=== PATIENT | female | born 1980 | race Caucasian/White ===

== ENCOUNTER 2016-05-30 12:39 | Emergency (ER) | payer BC ==
[~2016-05-30] VITALS: Ht 170.2 cm; Wt 74.8 kg
[~2016-05-30 12:39] MED LIST: SULF1TAB24 PO
[2016-05-30] MEDS ORDERED: OMEP20TA PO (13:09)
[2016-05-30] MEDS ORDERED: IV NORMAL SALINE 1000ML BAG 1,000 ML IV ONE (13:15)
[2016-05-30] MEDS ORDERED: DIPHENHYDRAMINE 50 MG/ML VIAL IVP ONE (13:15)
[2016-05-30] MEDS ORDERED: DEXAMETHASONE SOD PHOS 20 MG/5 ML VIAL. IV ONE (13:15)
[2016-05-30] MEDS ORDERED: FAMOTIDINE 20 MG/2 ML VIAL IVP ONE (13:15)
[2016-05-30 13:30] LABS: NEG OBC UR NEG; POS OBC UR POS
[2016-05-30 13:31] LABS: BILIRUBIN,URINE NEGATIVE (NEG); GLUCOSE,URINE NEGATIVE (NEG); NITRITE,URINE NEGATIVE (NEG); PH,URINE 5.5; PROTEIN,URINE NEGATIVE (NEG-TRACE); UROBILINOGEN,URINE 0.2 mg/dL (0.2 mg/dL)
[2016-05-30 13:47] LABS: BACTERIA,URINE MODERATE /HPF (0-FEW); SQUAMOUS EPITHELIAL CELL,UR OCC /LPF
[2016-05-30] MEDS ORDERED: DIPH25CA58 PO (14:07)
[2016-05-30] MEDS ORDERED: RANI150T6 PO (14:07)
[2016-05-30] MEDS ORDERED: LEVO500T38 PO (14:08)
--- NOTE | 2016-05-30 14:09 | PHYS DOC ---
Past Medical History Past Medical History: GERD Past Surgical History: No Surgical History Alcohol Use: None Drug Use: Marijuana Social History Narrative: last use last night Adult General Chief Complaint Chief Complaint: ALLERGIC REACTION HPI HPI 36-year-old female who states she is just getting over a flulike illness but is also developed a urinary tract infection. She saw her family doctor who prescribed her Bactrim and since taking the first Bactrim she is developed a red. Neck rash all over her body. She denies any tongue or lip swelling. She is not any difficulty breathing or swallowing. She states she does not recall if she's ever taken sulfa-containing medication in the past. [] Review of Systems Review of Systems Constitutional: Denies fever or chills [] Eyes: Denies change in visual acuity, redness, or eye pain [] HENT: Denies nasal congestion or sore throat [] Respiratory: Denies cough or shortness of breath [] Cardiovascular: No additional information not addressed in HPI [] GI: Denies abdominal pain, nausea, vomiting, bloody stools or diarrhea [] : Denies dysuria or hematuria [] Musculoskeletal: Denies back pain or joint pain [] Integument: Per history of present illness [] Neurologic: Denies headache, focal weakness or sensory changes [] Endocrine: Denies polyuria or polydipsia [] Current Medications Current Medications Current Medications Medications (Trade) Dose Ordered Sig/Bel Start Time Stop Time Status Last Admin Dose Admin Dexamethasone Sodium Phosphate (Decadron) 10 mg 1X ONCE 05/30/16 13:15 05/30/16 13:16 DC 05/30/16 13:25 10 MG Diphenhydramine HCl (Benadryl) 25 mg 1X ONCE 05/30/16 13:15 05/30/16 13:16 DC 05/30/16 13:25 25 MG Famotidine (Pepcid) 20 mg 1X ONCE 05/30/16 13:15 05/30/16 13:16 DC 05/30/16 13:25 20 MG Sodium Chloride (Iv Sodium Chloride 0.9% 1000ml Bag) 1,000 ml @ 1,000 mls/hr 1X ONCE 05/30/16 13:15 05/30/16 14:14 05/30/16 13:19 1,000 MLS/HR Allergies Allergies Allergies Coded Allergies Type Severity Reaction Last Updated Verified amoxicillin Allergy Mild vomiting 05/30/16 Yes clavulanic acid Allergy Mild vomiting 05/30/16 Yes erythromycin base Allergy Mild vomiting 05/30/16 Yes nitrofurantoin Allergy Unknown 04/11/16 Yes Physical Exam Physical Exam Constitutional: Well developed, well nourished, no acute distress, non-toxic appearance. [] HENT: Normocephalic, atraumatic, bilateral external ears normal, oropharynx moist, no oral exudates, nose normal. [] Eyes: PERRLA, EOMI, conjunctiva normal, no discharge. [] Neck: Normal range of motion, no tenderness, supple, no stridor. [] Cardiovascular:Heart rate regular rhythm, no murmur [] Lungs & Thorax: Bilateral breath sounds clear to auscultation [] Abdomen: Bowel sounds normal, soft, no tenderness, no masses, no pulsatile masses. [] Skin: Diffuse red urticarial type rash no vesicles no tongue or lip or uvular swelling] Back: No tenderness, no CVA tenderness. [] Extremities: No tenderness, no cyanosis, no clubbing, ROM intact, no edema. [] Neurologic: Alert and oriented X 3, normal motor function, normal sensory function, no focal deficits noted. [] Psychologic: Anxious Current Patient Data Vital Signs Vital Signs Date Time Temp Pulse Resp B/P Pulse Ox O2 Delivery O2 Flow Rate FiO2 05/30/16 12:50 98.3 78 18 149/96 97 Room Air 98.3 Lab Values Laboratory Tests Test 05/30/16 13:15 Urine Collection Type Unknown Urine Color Yellow Urine Clarity Cloudy Urine pH 5.5 Urine Specific [place] 1.020 Urine Protein Negativemg/dL (NEG-TRACE) Urine Glucose (UA) Negativemg/dL (NEG) Urine Ketones (Stick) Negativemg/dL (NEG) Urine Blood Trace (NEG) Urine Nitrite Negative (NEG) Urine Bilirubin Negative (NEG) Urine Urobilinogen Dipstick 0.2mg/dL (0.2 mg/dL) Urine Leukocyte Esterase Small (NEG) Urine RBC 1-2/HPF (0-2) Urine WBC 5-10/HPF (0-4) Urine Squamous Epithelial Cells Occ/LPF Urine Bacteria Moderate/HPF (0-FEW) Urine Mucus Marked/LPF Urine Test Negative (NEG) EKG EKG [] Radiology/Procedures Radiology/Procedures [] Course & Med Decision Making Course & Med Decision Making Pertinent Labs and Imaging studies reviewed. (See chart for details) [ED course: Evaluation reveals a 36-year-old female with an allergic rash likely secondary to Bactrim. She was given IV fluids, steroids, Benadryl and Pepcid. After the treatment the rash subsided. Patient was also noted to have a urinary tract infection she has taken her initial dose of antibiotics so I have informed her to stop those antibiotics and start the Levaquin that will be prescribed at home.] Dragon Disclaimer Dragon Disclaimer This electronic medical record was generated, in whole or in part, using a voice recognition dictation system. Departure Departure Impression: Primary Impression: Allergic reaction caused by a drug Additional Impression: Urinary tract infection Disposition: HOME, SELF-CARE Condition: STABLE Referrals: LIZET YO MANAGER OF SOFTWARE DEVELOPMENT (PCP) Patient Instructions: Drug Allergy, Urinary Tract Infection Additional Instructions: Never take sulfa-containing medication again. Take the Medrol Dosepak that you have been previously prescribed. Return to the emergency department with any new or concerning symptoms. If no improvement please follow with your family doctor this week for recheck. Scripts Levofloxacin (Levaquin)500 Mg Tablet1 Tab PO DAILY urinary tract infection #7 TAB Prov:RAMÓN ARTHUR DO 05/30/16 Ranitidine Hcl (Zantac)150 Mg Tablet1 Tab PO Q12HR PRN RASH #60 TAB Prov:RAMÓN ARTHUR DO 05/30/16 Diphenhydramine Hcl (Benadryl)25 Mg Capsule1 Cap PO Q6HRS PRN RASH #30 CAP Ref 1 Prov:RAMÓN ARTHUR DO 05/30/16 Problem Qualifiers Primary Impression: Allergic reaction caused by a drug Encounter type: initial encounter Qualified Code: T78.40XA - Allergy, unspecified, initial encounter Additional Impression: Urinary tract infection Urinary tract infection type: acute cystitis Hematuria presence: without hematuria Qualified Code: N30.00 - Acute cystitis without hematuria RAMÓN ARTHUR DO May 30, 2016 14:09
[2016-05-30 14:10] VITALS: BP 112/64
== END 2016-05-30 14:15 | disposition home or self-care (01) ==
LOC: ER 12:39
DX: T37.0X5A Adverse effect of sulfonamides, initial encounter (principal); N39.0 Urinary tract infection, site not specified; F12.10 Cannabis abuse, uncomplicated; K21.9 Gastro-esophageal reflux disease without esophagitis; Y92.89 Other specified places as the place of occurrence of the external cause; Z88.1 Allergy status to other antibiotic agents; Z88.8 Allergy status to other drugs, medicaments and biological substances
CPT/HCPCS: 81001; 81025; 87086; 96361; 96374; 96375; 99285; J1100; J1200; J7030; S0028

== ENCOUNTER → 2018-12-15 | Outpatient (CLI) | payer BC ==
[~2018-12-15] MED LIST changes: +DIPH25CA58 PO; +LEVO500T59 PO; +OMEP20TA8 PO; +RANI-376 PO
--- NOTE | 2018-12-16 08:53 | RAD ---
DATE: 12/15/2018 EXAM: MAMMO MATTHEW GOYAL, BREAST RIGHT HISTORY: Right breast palpable abnormality COMPARISON: None This study was interpreted with the benefit of Computerized Aided Detection (CAD). Breast Density: HETERO The breast parenchyma is heterogenously dense, which could reduce sensitivity of mammography. Breast parenchyma level C. FINDINGS: At the site of marker placement in the subareolar region, no suspicious mass, calcification cluster, or distortion identified. No other suspicious findings are evident. Bilateral subpectoral breast implants are unremarkable. Limited ultrasound imaging of the right breast was performed. Right breast 12:00 cyst 4 cm from nipple measuring 1.9 cm x 1 cm a 1.6 cm is present. Cyst at the 12:30 region 5 cm from the nipple measuring 1.7 cm x 1.5 cm x 0.19 minutes all noted. At the 2:00 region 3 cm from nipple, there is a 1 cm x 1.2 cm x 0.7 cm tall cyst. Internal echoes suggested within. Complex cystic structure measuring 0.8 cm x 0.8 cm x 0.5 cm tall is present without vascularity. Internal echoes are noted within it. Septation noted. There is no suspicious palpable finding upon physical exam by myself. IMPRESSION: Complex right breast cyst. Six-month follow-up ultrasound is recommended. Clinical management of palpable abnormality is recommended in determining need for biopsy as there are no suspicious corresponding findings on physical exam by myself. No definite corresponding imaging finding identified. BI-RADS CATEGORY: 3 PROBABLY BENIGN FINDING(S)-SHORT INTERVAL FOLLOW-UP SUGGESTED RECOMMENDED FOLLOW-UP: 6M 6 MONTH FOLLOW-UP PQRS compliance statement: Patient information was entered into a reminder system with a target due date based on clinical management for the next mammogram. Mammography is a sensitive method for finding small breast cancers, but it does not detect them all and is not a substitute for careful clinical examination. A negative mammogram does not negate a clinically suspicious finding and should not result in delay in biopsying a clinically suspicious abnormality. "Our facility is accredited by the [employer] Mammography Program."
== END | disposition home or self-care (01) ==
LOC: MAMMO 14:49
PROVIDERS: ATTEND Obstetrics & Gynecology
DX: Z01.419 Encounter for gynecological examination (general) (routine) without abnormal findings (principal); N60.01 Solitary cyst of right breast
CPT/HCPCS: 76641; 77066; G0279; 77062

== ENCOUNTER 2021-07-29 20:04 | Emergency (ER) | payer BC ==
[~2021-07-29] VITALS: Ht 172.7 cm; Wt 75.0 kg
--- NOTE | 2021-07-29 20:05 | PHYS DOC ---
Past Medical History Past Medical History: Anxiety, GERD, High Cholesterol Past Surgical History: Hysterectomy Smoking Status: Never Smoker Alcohol Use: None Drug Use: Marijuana General Adult HPI: HPI: Patient is a 41 year old female brought in by EMS for evaluation of dizziness and chest pain. The patient reports that she had been lying in bed most of the day, she had not had anything to eat or drink today, then she decided to go to [facility] with her oldest daughter, and when she was walking a mile but she became lightheaded/dizzy, she felt as if she might pass out, so she went out to the car to sit down. She did not fall, sustained head injury or experience any syncope. She denies vertigo symptoms. She denies numbness or tingling or motor weakness. She reports that she had a brief episode of chest pain lasting 1 minute or less, she felt like it was midsternal, pressure-like and did not radiate, is currently resolved. She denies any associated dyspnea, pleuritic pain, cough, diaphoresis, abdominal pain, nausea vomiting symptoms with it. She admits that she does have some anxiety issues, which are chronic and unchanged. She reports that she has had similar chest pain with anxiety. She reports that she has been upset today because it is the anniversary of her brother's , so she had not been very active and has been feeling sad today. She denies SI or HI symptoms. She denies any current dizziness symptoms or current chest pain symptoms. Her daughter drove her to the fire station, and she had a episode of hypotension, which quickly resolved after less than 200 mL of IV fluid given. Her blood pressure is currently stable. She denies any recent travel, surgery, hospitalizations. She denies any lower extremity pain or swelling. She denies cough or hemoptysis. She denies fevers or chills. Review of Systems: Review of Systems: Constitutional: Denies fever or chills. [] Eyes: Denies change in visual acuity. [] HENT: Denies nasal congestion or sore throat. [] Respiratory: Denies cough or shortness of breath. [] Cardiovascular: Denies chest pain. Denies syncope or peripheral edema. GI: Denies abdominal pain, nausea, vomiting Musculoskeletal: Denies back pain or joint pain. [] Integument: Denies rash. [] Neurologic: Denies headache, focal weakness or sensory changes. Reported brief episode of dizziness/lightheadedness, now resolved. No syncope. No fall or head injury. No numbness or tingling or focal motor weakness. Psychiatric: Chronic anxiety, unchanged. Denies SI or HI. Heart Score: C/O Chest Pain: Yes HEART Score for Chest Pain: HEART Score for Chest Pain Response (Comments) Value History Slighlty/Non-Suspicious 0 Age < 45 0 Risk Factors 1 or 2 Risk Factors 1 Troponin < Normal Limit 0 Total 1 Risk Factors: Risk Factors: DM, Current or recent (<one month) smoker, HTN, HLP, family history of CAD, obesity. Risk Scores: Score 0 - 3: 2.5% MACE over next 6 weeks - Discharge Home Score 4 - 6: 20.3% MACE over next 6 weeks - Admit for Clinical Observation Score 7 - 10: 72.7% MACE over next 6 weeks - Early Invasive Strategies Allergies: Allergies: Allergies Coded Allergies Type Severity Reaction Last Updated Verified Sulfa (Sulfonamide Antibiotics) Allergy Intermediate Rash 11/06/16 Yes amoxicillin Allergy Mild vomiting 05/30/16 Yes clavulanic acid Allergy Mild vomiting 05/30/16 Yes erythromycin base Allergy Mild vomiting 05/30/16 Yes nitrofurantoin Allergy Unknown 04/11/16 Yes Physical Exam: PE: Constitutional: Well developed, well nourished, no acute distress, non-toxic appearance. [] HENT: Normocephalic, atraumatic Eyes: Conjunctiva are normal. Sclera anicteric. Neck: Normal range of motion, no tenderness, supple, no stridor. Trachea is m idline. No JVD. Cardiovascular:Heart rate regular rhythm, was 2 radial and +2 posterior tibial pulses bilaterally. Lungs & Thorax: Bilateral breath sounds clear to auscultation [] Abdomen: Abdomen is soft, nondistended, nontender to palpation. No palpable pulsatile mass. Normal bowel sounds. Skin: Warm, dry, no erythema, no rash. [] Back: No tenderness, no CVA tenderness. [] Extremities: No tenderness, no cyanosis, no clubbing, ROM intact, no edema. No calf tenderness Neurologic: Alert and oriented X 3, normal motor function, normal sensory function, no focal deficits noted. [] Psychologic: Affect normal, judgement normal, mood normal. She is pleasant and cooperative. EKG: EKG: EKG is interpreted at 2011 Rhythm is sinus Rate is 60 bpm [place] is left artifact No STEMI EKG is interpreted at 2056 Rhythm is sinus Rate is 62 bpm [place] is left artifact No STEMI Radiology/Procedures: Radiology/Procedures: IMAGING REPORT Signed PATIENT: DICK CHACNO ACCOUNT: [id number] : 1980 LOCATION: ER AGE: 41 SEX: F EXAM STATUS: REG ER ORD. PHYSICIAN: ENOCH JACKSON DO REASON: chest pain PROCEDURE: PORTABLE CHEST 1V XR CHEST 1V History: Reason: chest pain / Spl. Instructions: / History: Comparison: None. Findings: No consolidation or pleural effusion. Normal heart size. No pneumothorax. Impression: 1. No acute cardiopulmonary process. Electronically signed by: Serge Templeton DO (07/29/2021 8:50 PM) [facility] DICTATED and SIGNED BY: SERGE TEMPLETON DO DATE: 07/29/212049 Course & Med Decision Making: Course & Med Decision Making Pertinent Labs and Imaging studies reviewed. (See chart for details) The patient has been resting comfortably here. She is observed for several hours. Serial troponin exams are negative/normal. She has not reported any return of chest pain or dizziness. She is resting comfortably. Vital signs have been stable. I discussed the findings, differential diagnosis and plan of care with her. She is comfortable with the plan for discharge home. I told her to contact her PCP for follow-up. Strict return precautions are given. She verbalizes understanding. Javier Disclaimer: Javier Disclaimer: This electronic medical record was generated, in whole or in part, using a voice recognition dictation system. Departure Departure Impression: Primary Impression: Atypical chest pain Additional Impression: Dizziness Disposition: HOME / SELF CARE / HOMELESS Condition: STABLE Referrals: LIZET YO CANE FLUME CHUTE OPERATOR (PCP) Patient Instructions: Chest Pain (Nonspecific), Dizziness Additional Instructions: Return to the ER immediately for more severe or persistent chest pain, shortness of breath, control vomiting, dehydration, severe abdominal pain, if you fall or injure yourself, if you pass out, develop any focal weakness or for any other concerns. Stay hydrated, avoid any new or strenuous activity. Follow-up with your primary care physician. ENOCH JACKSON DO Jul 29, 2021 20:05
[2021-07-29] MEDS: IV NORMAL SALINE 1000ML BAG 1,000 ML IV ONE (20:22)
[2021-07-29 20:25] LABS: BASO # 0.1 x10^3/uL (0.0-0.2); BASO % 1 % (0-3); EOS # 0.1 x10^3/uL (0.0-0.7); EOS % 2 % (0-3); HEMATOCRIT 40.2 % (36.0-47.0); HEMOGLOBIN 13.1 g/dL (12.0-15.5); LYMPH # 1.9 x10^3/uL (1.0-4.8); LYMPH % 24 % (24-48); MEAN CORPUSCULAR HEMOGLOBIN 31 pg (25-35); MEAN CORPUSCULAR HGB CONC 33 g/dL (31-37); MEAN CORPUSCULAR VOLUME 94 fL (79-100); MONO # 0.4 x10^3/uL (0.0-1.1); MONO % 5 % (0-9); NEUT # 5.6 x10^3/uL (1.8-7.7); NEUT % 69 % (31-73); PLATELET COUNT 289 x10^3/uL (140-400); RED BLOOD COUNT 4.29 x10^6/uL (3.50-5.40); RED CELL DISTRIBUTION WIDTH 13.9 % (11.5-14.5); WHITE BLOOD COUNT 8.1 x10^3/uL (4.0-11.0)
[2021-07-29 20:34] LABS: CALCIUM 8.6 mg/dL (8.5-10.1); GFR 60.5; POTASSIUM 3.4 mmol/L (3.5-5.1)
[2021-07-29 20:46] LABS: ALBUMIN 3.8 g/dL (3.4-5.0); ALBUMIN/GLOBULIN RATIO 1.1 (1.0-1.7); MAGNESIUM 2.1 mg/dL (1.8-2.4); TOTAL BILIRUBIN 0.4 mg/dL (0.2-1.0); TOTAL PROTEIN 7.3 g/dL (6.4-8.2)
--- NOTE | 2021-07-29 20:53 | RAD ---
XR CHEST 1V History: Reason: chest pain / Spl. Instructions: / History: Comparison: None. Findings: No consolidation or pleural effusion. Normal heart size. No pneumothorax. Impression: 1. No acute cardiopulmonary process. Electronically signed by: Serge Templeton DO (07/29/2021 8:50 PM) [facility]
--- NOTE | 2021-07-29 20:58 | EKG ---
[facility] [address] [place] [address] Test Date: 2021-07-29 Test Time: 20:12:10 Pat Name: DICK CHACON Department: Room: Gender: F Human Resources Trainer: : 1980 Requested By: ENOCH JACKSON Order Number: [id number] Reading MD: Stephen Manzanares Measurements Intervals [place] Rate: 60 P: NV: QRS: -23 QRSD: 110 T: 26 QT: 408 QTc: 412 Interpretive Statements SINUS RHYTHM NON SPECIFIC ST-T WAVE CHANGES Electronically Signed On 07-30-2021 14:55:07 CDT by Stephen Manzanares
--- NOTE | 2021-07-29 20:59 | EKG ---
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
[2021-07-29 23:57] VITALS: BP 119/78
== END 2021-07-29 23:59 | disposition home or self-care (01) ==
LOC: ER 20:04
DX: R07.89 Other chest pain (principal); R42 Dizziness and giddiness; K21.9 Gastro-esophageal reflux disease without esophagitis; E78.00 Pure hypercholesterolemia, unspecified; Z88.2 Allergy status to sulfonamides; Z88.1 Allergy status to other antibiotic agents; Z88.8 Allergy status to other drugs, medicaments and biological substances
CPT/HCPCS: 36415; 71045; 80053; 83690; 83735; 84484; 85025; 85379; 93005; 99285; J7030